=== PATIENT | female | born 1985 ===

== ENCOUNTER 2024-03-31 10:06 | Outpatient (CLI) | payer OTHER ==
--- NOTE | 2024-04-01 08:57 | Mammography Report ---
BILATERAL DIGITAL DIAGNOSTIC MAMMOGRAM 3D/2D WITH SPOT COMPRESSION: 03/31/2024 CLINICAL: Palpable left breast lump. Focal left breast pain. Due for bilateral exam. Comparison is made to exam dated: 01/30/2023 mammogram - [facility]. Both breasts are extremely dense, which lowers the sensitivity of mammography (category d />75% gland ular tissue). No significant masses, calcifications, or other findings are seen in either breast. Specifically, no finding to explain the patient's pain or palpable abnormality. Mammograms are otherwise stable. IMPRESSION: INCOMPLETE: NEEDS ADDITIONAL IMAGING EVALUATION Bilateral mammograms are stable. There is no abnormality seen in the left breast to correspond with the pain at 10 o'clock. There is no abnormality seen in the left breast to correspond with the palpable abnormality at 11 o'c lock in the anterior depth. Ultrasound is recommended for full evaluation of these areas. This was performed immediately followin g this exam. Based on the Tyrer Cuzick model (a risk assessment model) the patient's lifetime risk is 14.2% and he r 10 year risk is 1.8%. According to the ACR, ACS, and NCCN guidelines, an annual breast MRI exam shawanda ng with mammogram is recommended if the patient's lifetime risk is 20% or greater. This exam was interpreted at Station ID: [id number]. NOTE: For mammograms, a report in lay terms will be sent to the patient. Approximately 15% of breast malignancies will not be visualized mammographically. In the management of a palpable breast mass, a negative mammogram must not discourage biopsy of a clinically suspicious lesion. Electronically Signed By: Allie queen/:03/31/2024 10:55:18 ACR BI-RADS Category 0: Incomplete 3340F PARENCHYMAL PATTERN: (VD) - The breast(s) demonstrate(s) extremely dense parenchyma, limiting the sen sitivity of mammography. BI-RADS CATEGORY: (0) - 0 Ultrasound [id number] Immediate follow-up LATERALITY: (B)
--- NOTE | 2024-04-01 08:57 | Ultrasound Report ---
LIMITED ULTRASOUND OF LEFT BREAST: 03/31/2024 CLINICAL: Palpable left breast lump. Focal left breast pain. Comparison is made to exams dated: 03/31/2024 mammogram - [facility], 01/30/2023 esper[facility] mogram, 01/30/2023 ultrasound, and 05/26/2022 ultrasound - [facility]. Color flow ultrasound of the left breast 9 o'clock and 11 o'clock regions was performed. Kc scale images of the real-time examination were reviewed. No significant abnormalities were seen sonographically in the left breast. Specifically, no finding to explain the patient's pain. No finding to correspond to the patient's palpable abnormality. IMPRESSION: NEGATIVE There is no sonographic abnormalities in the left breast and no evidence of malignancy. Return to annual mammogram screening schedule is recommended. Findings and recommendations were conveyed to the patient at time of exam. This exam was interpreted at Station ID: [id number]. Electronically Signed By: Allie queen/:03/31/2024 11:20:51 letter sent: No_Letter Ultrasound BI-RADS: 1 Negative BI-RADS CATEGORY: (1) - 1 RECOMMENDATION: (ANNUAL) - Recommend routine annual screening mammography. [id number] return to screening LATERALITY: (B)
== END 2024-03-31 10:07 | disposition home or self-care (01) ==
LOC: DI 10:06
PROVIDERS: ATTEND Student in an Organized Health Care Education/Training Program
DX: N63.22 Unspecified lump in the left breast, upper inner quadrant (principal); N64.4 Mastodynia